=== PATIENT | female | born 1985 | race African-American/Black ===

== ENCOUNTER 2025-03-25 18:58 | Emergency (ER) | payer MEDICAID, OTHER ==
[~2025-03-25] VITALS: Ht 177.8 cm; Wt 111.4 kg
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
[2025-03-25] MEDS ORDERED: CYCL-837 PO (21:47)
[2025-03-25] MEDS ORDERED: IBUP-1455 PO (21:47)
[2025-03-26 05:15] VITALS: BP 133/82; PULSE 97; RESP 16; TEMP 98.2; O2SAT 99
== END 2025-03-26 05:15 | disposition home or self-care (01) ==
LOC: ER 18:58 → EDBD 18:58 → ER 03-26 05:15
DX: S80.02XA Contusion of left knee, initial encounter (principal); V89.2XXA Person injured in unspecified motor-vehicle accident, traffic, initial encounter; Y93.89 Activity, other specified; Y92.89 Other specified places as the place of occurrence of the external cause; Y99.8 Other external cause status
CPT/HCPCS: 73562